=== PATIENT | male | born 1955 | race Caucasian/White ===

== ENCOUNTER 2019-04-29 01:01 | Emergency (ER) | payer OTHER ==
[~2019-04-29] VITALS: Ht 167.6 cm; Wt 74.8 kg
[~2019-04-29 01:01] MED LIST: ASPIRIN EC325 MG PO; FLOMAX0.4 MG PO
[2019-04-29] MEDS ORDERED: CIPRO500 MG PO ×2 (01:56)
== END 2019-04-29 02:35 | disposition home or self-care (01) ==
LOC: ED 01:01
DX: Z46.6 Encounter for fitting and adjustment of urinary device (principal); Z79.899 Other long term (current) drug therapy
CPT/HCPCS: 51798; 99283-25

== ENCOUNTER 2019-04-30 17:04 | Emergency (ER) | payer OTHER ==
[~2019-04-30] VITALS: Ht 167.6 cm; Wt 73.9 kg
[~2019-04-30 17:04] MED LIST changes: +CIPRO500 MG PO
--- OUTSIDE RECORDS SUMMARY | 2019-04-30 17:06 | XMS ---
PreManage Notification: [employer] Consultant Events No recent Security Events currently on file CRITERIA MET - [facility] - 2 Visits in 30 Days CARE PROVIDERS [facility] Primary [facility] PHONE: Unknown [facility] Primary [facility] PHONE: Unknown Alda has no Care Guidelines for this patient. Kellen VISIT COUNT (12 MO.) [address] [place] [address] TOTAL 2 NOTE: Visits indicate total known visits. ED/UCC VISIT TRACKING (12 MO.) 04/30/2019 17:04 [facility] TYPE: Emergency COMPLAINT: - URINE/ CATHETER PROBLEM 04/29/2019 01:01 [facility] TYPE: Emergency COMPLAINT: - URINE PROBLEM INPATIENT VISIT TRACKING (12 MO.) No inpatient visits to display in this time frame [email or web address]
== END 2019-04-30 19:59 | disposition home or self-care (01) ==
LOC: ED 17:04
DX: R31.9 Hematuria, unspecified (principal); Z46.6 Encounter for fitting and adjustment of urinary device; Z79.899 Other long term (current) drug therapy
CPT/HCPCS: 81001; 99283